=== PATIENT | male | born 1975 | race Hispanic/Latino ===

== ENCOUNTER 2017-03-17 09:59 | Emergency (ER) | payer SELFPAY ==
[2017-03-17] MEDS ORDERED: SODIUM CHLORIDE 0.9% 500ML 500 ML IV ONE (10:15)
[2017-03-17] MEDS ORDERED: NITROGLYCERIN 1GM/1 INCH PACKET TD ONE (10:25)
[2017-03-17] MEDS ORDERED: ASPIRIN 325 MG TABLET ONE (10:25)
[2017-03-17 10:34] LABS: BASOPHILS % (AUTO) 0.3 % (0.0-5.0); EOSINOPHILS % (AUTO) 0.3 % (0.0-8.0); HEMATOCRIT 42.9 % (42-54); LYMPHOCYTES % (AUTO) 16.6 % (21.0-51.0); MEAN CORPUSCULAR HEMOGLOBIN 29.4 pg (27.0-33.0); MEAN CORPUSCULAR HGB CONC 33.7 g/dL (32.0-36.0); MEAN CORPUSCULAR VOLUME 87.3 fL (79-99); MONOCYTES % (AUTO) 8.1 % (3.0-13.0); NEUTROPHILS % (AUTO) 74.7 % (40.0-77.0); PLATELET COUNT (AUTO) 247 K/uL (130-400); RED BLOOD CELL COUNT(AUTO) 4.91 MIL/uL (4.50-6.20); RED CELL DISTRIBUTION WIDTH 13.6 % (11.0-15.5); WHITE BLOOD COUNT (AUTO) 8.6 K/uL (4.8-10.8)
[2017-03-17 10:43] LABS: CREATININE 0.9 mg/dL (0.5-1.5); POTASSIUM 3.6 mmol/L (3.5-5.1)
[2017-03-17 10:56] LABS: ALBUMIN 3.8 g/dL (3.5-5.0); BILIRUBIN,TOTAL 0.4 mg/dL (0.2-1.0); CREATINE KINASE MB 0.5 ng/mL (0.5-3.6); TOTAL PROTEIN, SERUM 7.4 g/dL (6.0-8.3)
[2017-03-17 11:42] LABS: AMPHET/METH SCREEN,URINE NEGATIVE (NEGATIVE); BARBITURATE SCREEN, URINE NEGATIVE (NEGATIVE); BENZODIAZEPINES SCREEN,URINE NEGATIVE (NEGATIVE); CANNABINOID SCREEN,URINE POSITIVE (NEGATIVE); COCAINE SCREEN,URINE POSITIVE (NEGATIVE); OPIATE SCREEN,URINE NEGATIVE (NEGATIVE); PHENCYCLIDINE SCREEN,URINE NEGATIVE (NEGATIVE)
[2017-03-17 13:29] LABS: APPEARANCE,URINE Clear (CLEAR); BILIRUBIN,URINE Negative (NEGATIVE); COLOR,URINE Yellow (YELLOW); GLUCOSE, URINE (UA) Negative (NEGATIVE); KETONES,URINE Negative (NEGATIVE); LEUKOCYTE ESTERASE ,URINE Negative (NEGATIVE); NITRATE,URINE Negative (NEGATIVE); OCCULT BLOOD,URINE Negative (NEGATIVE); PROTEIN,URINE Negative (NEGATIVE); UROBILINOGEN,URINE 0.2 mg/dL (0.2-1.0)
== END 2017-03-17 16:05 | disposition home or self-care (01) ==
LOC: EDH 09:59
DX: R07.89 Other chest pain (principal); F19.10 Other psychoactive substance abuse, uncomplicated; E66.01 Morbid (severe) obesity due to excess calories; F14.10 Cocaine abuse, uncomplicated; F12.10 Cannabis abuse, uncomplicated; Z68.43 Body mass index [BMI] 50.0-59.9, adult; Z72.0 Tobacco use
CPT/HCPCS: 36415; 71045; 80053; 80305; 81003; 82550; 82553; 84484 ×2; 85025; 93005 ×2; 96360; 99285; J7040

== ENCOUNTER 2018-11-03 03:14 | Emergency (ER) | payer OTHER ==
[2018-11-03 03:35] LABS: BASOPHILS % (AUTO) 0.6 % (0.0-5.0); EOSINOPHILS % (AUTO) 3.1 % (0.0-8.0); HEMATOCRIT 45.8 % (42-54); LYMPHOCYTES % (AUTO) 37.7 % (21.0-51.0); MEAN CORPUSCULAR HEMOGLOBIN 31.1 pg (27.0-33.0); MEAN CORPUSCULAR HGB CONC 33.7 g/dL (32.0-36.0); MEAN CORPUSCULAR VOLUME 92.3 fL (79-99); MONOCYTES % (AUTO) 9.1 % (3.0-13.0); NEUTROPHILS % (AUTO) 49.5 % (40.0-77.0); PLATELET COUNT (AUTO) 198 K/uL (130-400); RED BLOOD CELL COUNT(AUTO) 4.96 MIL/uL (4.50-6.20); WHITE BLOOD COUNT (AUTO) 10.5 K/uL (4.8-10.8)
[2018-11-03 03:46] LABS: INR 0.95 (0.85-1.15); PARTIAL THROMBOPLASTIN TIME 26.7 SEC (26.3-35.5)
[2018-11-03 03:47] LABS: POTASSIUM 4.5 mmol/L (3.5-5.1)
[2018-11-03 03:51] LABS: ALBUMIN 3.6 g/dL (3.5-5.0); BILIRUBIN,TOTAL 0.3 mg/dL (0.2-1.0); TOTAL PROTEIN, SERUM 7.2 g/dL (6.0-8.3)
[2018-11-03] MEDS ORDERED: ASPIRIN 325 MG TABLET ONE (04:22)
[2018-11-03] MEDS ORDERED: NITROGLYCERIN 0.4 MG SL TAB SL ONE (04:33)
[2018-11-03] MEDS ORDERED: LORAZEPAM 2 MG/ML 1 ML VIAL ONE (04:33)
[2018-11-03] MEDS ORDERED: SODIUM CHLORIDE 0.9% 500ML 500 ML IV ONE (04:34)
== END 2018-11-03 06:45 | disposition home or self-care (01) ==
LOC: EDH 03:14
DX: R07.89 Other chest pain (principal); F12.10 Cannabis abuse, uncomplicated; Z72.0 Tobacco use
CPT/HCPCS: 36415; 71045; 80053; 84484 ×2; 85025; 85610; 85730; 93005 ×2; 96374; 99285; J2060; J7040

== ENCOUNTER → 2020-07-19 | Outpatient (CLI) | payer OTHER | END | disposition home or self-care (01) | LOC: OIH 11:02 | PROVIDERS: ATTEND Family Medicine | DX: M25.562 Pain in left knee (principal) | CPT/HCPCS: 73562 ==

== ENCOUNTER 2023-05-08 13:41 | Emergency (ER) | payer OTHER ==
[~2023-05-08] VITALS: Ht 167.6 cm; Wt 176.9 kg
[~2023-05-08 13:41] MED LIST: IBUP-2070 PO; PROM25TA7 PO
[2023-05-08] MEDS ORDERED: LIDOCAINE HCL 1% 20 ML VIAL ONE (14:04)
[2023-05-08] MEDS: KETOROLAC 30MG VIAL (30MG/ML) IVP ONE (14:59)
[2023-05-08] MEDS: CEFAZOLIN SODIUM 1 GM VIAL IVPB STA (14:59)
[2023-05-08] MEDS: NEOMY SULF/BACITRA/POLYMYXIN B 1 EACH PACKET TP ONE (15:00)
[2023-05-08] MEDS: TETANUS/DIPHTHERIA TOXOID [ADULT] 0.5 ML VIAL IM ONE (15:02)
[2023-05-08] MEDS ORDERED: CEPH500B PO (16:17)
[2023-05-08] MEDS ORDERED: IBUP-2077 PO (16:17)
[2023-05-08 18:30] VITALS: BP 136/72; PULSE 76; RESP 20; O2SAT 99
== END 2023-05-08 18:23 | disposition home or self-care (01) ==
LOC: EDH 13:41
DX: S61.213A Laceration without foreign body of left middle finger without damage to nail, initial encounter (principal); F17.200 Nicotine dependence, unspecified, uncomplicated; Z90.89 Acquired absence of other organs; Z79.899 Other long term (current) drug therapy; Z98.890 Other specified postprocedural states; W07.XXXA Fall from chair, initial encounter; Y93.89 Activity, other specified; Y92.89 Other specified places as the place of occurrence of the external cause; Y99.8 Other external cause status
CPT/HCPCS: 99284; 96365; 96375; 90714; 73140; 90471; 12001; J0690; J1885

== ENCOUNTER 2023-12-13 07:09 | Emergency (ER) | payer SELFPAY ==
[~2023-12-13] VITALS: Ht 167.6 cm; Wt 167.8 kg
[~2023-12-13 07:09] MED LIST changes: +CEPH500B PO; +IBUP-2077 PO
[2023-12-13 07:31] LABS: BASOPHILS # (AUTO) 0.04 K/uL (0.00-0.20); BASOPHILS % (AUTO) 0.4 % (0.0-5.0); EOSINOPHILS # (AUTO) 0.16 K/uL (0.00-0.70); EOSINOPHILS % (AUTO) 1.7 % (0.0-8.0); HEMATOCRIT 46.3 % (42-54); IMMATURE GRANULOCYTE ABSOLUTE 0.03 K/uL (0-1); LYMPHOCYTES # (AUTO) 2.6 K/uL (1.0-4.8); LYMPHOCYTES % (AUTO) 27.5 % (21.0-51.0); MEAN CORPUSCULAR HEMOGLOBIN 30.2 pg (27.0-33.0); MEAN CORPUSCULAR HGB CONC 32.8 g/dL (32.0-36.0); MEAN CORPUSCULAR VOLUME 91.9 fL (79-99); MONOCYTES # (AUTO) 0.8 K/uL (0.1-1.0); MONOCYTES % (AUTO) 8.3 % (3.0-13.0); NEUTROPHILS # (AUTO) 5.7 K/uL (1.8-7.7); NEUTROPHILS % (AUTO) 61.8 % (40.0-77.0); PLATELET COUNT (AUTO) 213 K/uL (130-400); RED BLOOD CELL COUNT(AUTO) 5.04 MIL/uL (4.50-6.20); RED CELL DISTRIBUTION WIDTH 13.6 % (11.0-15.5); WHITE BLOOD COUNT (AUTO) 9.3 K/uL (4.8-10.8)
[2023-12-13 07:38] LABS: CREATININE 0.8 mg/dL (0.5-1.3); POTASSIUM 4.1 mmol/L (3.5-5.1)
[2023-12-13 11:42] VITALS: BP 123/77; PULSE 86; RESP 17; TEMP 97.7; O2SAT 97
== END 2023-12-13 11:42 | disposition home or self-care (01) ==
LOC: EDH 07:09
DX: R07.89 Other chest pain (principal); R00.0 Tachycardia, unspecified; E66.9 Obesity, unspecified; F17.200 Nicotine dependence, unspecified, uncomplicated; Z90.89 Acquired absence of other organs; Z98.890 Other specified postprocedural states; Z68.43 Body mass index [BMI] 50.0-59.9, adult
CPT/HCPCS: 36415; 71045; 80048; 84484; 85025; 85378; 93005

== ENCOUNTER 2024-08-17 00:52 | Emergency (ER) | payer BC ==
[~2024-08-17] VITALS: Ht 167.6 cm; Wt 176.9 kg
[2024-08-17] MEDS: HYDROcodone/APAP 5/325 1 TAB TABLET PO ONE (01:13)
[2024-08-17] MEDS: ketOROlac 15MG/ML VIAL (15MG/ML) IM ONE (01:17)
[2024-08-17] MEDS ORDERED: AMOX1TAB16 PO (01:19)
[2024-08-17] MEDS ORDERED: MELO-108 PO (01:19)
--- NOTE | 2024-08-17 01:19 | ERN ---
General Chief Complaint: Other Problems Stated Complaint: FACIAL PAIN Time Seen by MD: 00:53 History of Present Illness Initial Comments 48-year-old male, obese, presents for left-sided face pain. Patient reports that beginning about 6 hours ago he felt some pressure in the maxillary sinus area in the left side. He reports a throbbing type pain. No fevers. No earache or dental pain. He took a Tylenol at home without relief. Allergies: Coded Allergies: No Known Drug Allergies (Unverified Allergy, Unknown, 11/03/18) Home Meds Active Scripts Ibuprofen (Ibuprofen 800 mg Tab) 800 Mg Tab, 800 MG PO Q8H PRN for fever or pain, #30 TAB 0 Refills Prov:TOMMY GUERRERO COIL CONNECTOR 05/08/23 Cephalexin Monohydrate (Keflex) 500 Mg Cap, 500 MG PO QID for 10 Days, #40 CAP Prov:TOMMY GUERRERO COIL CONNECTOR 05/08/23 Promethazine HCl (Promethazine HCl) 25 Mg Tablet, 25 MG PO TID PRN for HEADACHE, #15 TAB 0 Refills Prov:CAMRON NIETO MD 09/14/22 Ibuprofen (Ibuprofen) 600 Mg Tablet, 600 MG PO Q6H PRN for PAIN, #40 TAB 0 Refills Prov:CAMRON NIETO MD 09/14/22 Past Medical History Past Medical History: No Pertinent History, High Cholesterol, Hypertension Past Surgical History: Tonsillectomy, Cholecystectomy, Other Surgical History Other: HERNIA Social History Social History: Smokers, Drugs, ETOH ROS Dictation CONSTITUTIONAL: No chills, no fever, no weakness, no diaphoresis, no malaise. HEAD/FACE: Right face pain EENT: No eye pain, no blurred vision, no tearing, no double vision, no ear pain, no ear discharge, no nose pain, no nasal congestion, no throat pain, no throat swelling, no mouth pain. RESPIRATORY: No cough, no orthopnea, no SOB, no stridor, no wheezing. CARDIOVASCULAR: No chest pain, no edema, no palpitations, no syncope. GASTROINTESTINAL/ABDOMINAL: No abdominal pain, no constipation, no diarrhea, no nausea, no vomiting. GENITOURINARY: No abnormal discharge, no dysuria, no frequent urination, no hematuria. No complaints of pain in the genitals. MUSCULOSKELETAL: No back pain, no gout, no joint pain, no joint swelling, no muscle pain, no muscle stiffness, no neck pain. INTEGUMENTARY: No change in color, no change in hair/nails, no dryness, no lesion, no lumps, no rash. NEUROLOGICAL/PSYCH: No anxiety, not depressed, no emotional problem, no headache, no numbness, no pre-existing deficit, no history of seizures, no tremors, no weakness. HEMATOLOGIC/LYMPHATIC: Not anemic, no history of blood clots, no apparent bleeding, no bruising, glands not swollen. All Systems Negative, Except as Noted. Physical Exam Physical Exam Dictation VITAL SIGNS: Reviewed. GENERAL APPEARANCE: Alert, oriented x3, no acute distress, obese. HEAD AND FACE: Non-traumatic. EYES: PERRL, pink conjunctivas, eyelid no trauma, anterior chamber clear. EARS: Pinnas intact and no signs of trauma or erythema. Ear canals clear and no discharge. TMs no erythema. NOSE: No discharge, no bleeding. OROPHARYNX: Mouth normal, teeth no caries, tongue pink. Pharynx clear, no erythema. Tonsils no exudates, no abscesses noted. Mucous membrane moist. NECK: Supple, non-tender, no thyromegaly, no masses, no JVD, no bruits. BREAST: Deferred. CHEST: No tenderness, no crepitus, no paradoxical movement, no retractions. LUNGS: Clear, well-ventilated, symmetric, no rales, no wheezing, no rhonchi, no stridor, good breath sounds bilaterally. HEART: Regular rate, regular rhythm, no murmur, no gallops. VASCULAR: No peripheral edema. ABDOMEN: Soft, positive bowel sounds, nondistended, no guarding, nontender, no rebound, no masses no hepatomegaly, no splenomegaly, no Hernandez's sign, no hernias. RECTAL: Deferred. GENITAL: Deferred. NEUROLOGICAL: Normal speech, gross motor function intact, gross sensory function intact. MUSCULOSKELETAL: Neck nontender, full range of motion, back nontender, full range of motion. EXTREMITIES: Nontender, full range of motion. SKIN: Color pink, dry, no turgor, no rash, no lacerations, no abrasions, no contusions. LYMPHATICS: Deferred. MDM CC: Left-sided face pain Historian: Patient Comorbidities: Obesity Limitations by social determinants of health: None Differential diagnosis: Sinusitis, ear infection, tooth infection, mumps, other. Clinical exam consistent with a sinusitis Treatment in ED: IM Toradol, p.o. [place] Plan: We will DC with Augmentin, meloxicam, Tylenol. Recommend PCP follow up. Patient agrees. ED Course Orders Procedure Category Date Status Time Ketorolac PHA 08/17/24 In Process Tromethamine 15mg/Ml 01:30 Hydrocodone/Apap PHA 08/17/24 In Process 5/325 ([place] 5/325mg) 01:30 Current Medications Medications (Trade) Dose Ordered Sig/Myriam Route PRN Reason Start Time Stop Time Status Last Admin Dose Admin Acetaminophen/ Hydrocodone Bitart (NORco 5/325MG) 1 tab ONCE ONCE PO 08/17/24 01:30 08/17/24 01:31 08/17/24 01:13 Ketorolac Tromethamine (toRADol) 15 mg ONCE ONCE IM 08/17/24 01:30 08/17/24 01:31 Vital Signs Date Time Temp Pulse Resp B/P (MAP) Pulse Ox O2 Delivery O2 Flow Rate FiO2 08/17/24 00:53 98.4 67 18 141/79 98 Room Air DX & DISP Disposition: Discharge Departure Impression: Primary Impression: Sinusitis Condition: Stable Scripts Amoxicillin/Potassium Clav (Amox Tr-K Clv 875-125 mg Tab) 875 Mg-125 Mg Tablet 1 TAB PO BID for 10 Days, #20 TAB 0 Refills Prov: ROB KITCHEN DO 08/17/24 Meloxicam (Meloxicam) 15 Mg Tablet 15 MG PO DAILY PRN for PAIN for 10 Days, #10 TAB Prov: ROB KITCHEN DO 08/17/24 Additional Instructions: Your symptoms are most consistent with a sinus infection. I have prescribed Augmentin, which is an antibiotic. Please take twice per day as prescribed. I recommended an [id number] decongestants such as Sudafed. I have prescribed meloxicam to use for pain. Take this once per day. I also recommend you take 1000 mg of Tylenol up to 4 times a day for pain. Please follow up with the primary doctor in 3-5 days if your symptoms do not improve. Return to the emergency department sooner if you have any concerns. Referrals: NONE (PCP) ROB KITCHEN DO Aug 17, 2024 01:19
[2024-08-17 01:30] VITALS: BP 125/50; PULSE 69; RESP 18; TEMP 98.4; O2SAT 96
== END 2024-08-17 01:34 | disposition home or self-care (01) ==
LOC: EDH 00:52
DX: J32.9 Chronic sinusitis, unspecified (principal); E66.9 Obesity, unspecified; F17.200 Nicotine dependence, unspecified, uncomplicated; Z90.49 Acquired absence of other specified parts of digestive tract; Z90.89 Acquired absence of other organs; Z79.899 Other long term (current) drug therapy
CPT/HCPCS: 99284; 96372; J1885